=== PATIENT | female | born 1985 | race Two or more races ===

== ENCOUNTER 2020-03-03 22:30 | Emergency (ER) | payer OTHER ==
[~2020-03-03] VITALS: Ht 165.1 cm; Wt 61.2 kg
[2020-03-04] MEDS ORDERED: INTESTINEX680 M1 PO (05:29)
[2020-03-04] MEDS ORDERED: BUTALBIT-ACETA1 EACH PO (05:29)
[2020-03-04] MEDS ORDERED: ONDANSETRON ODT4 MG PO (05:29)
[2020-03-04] MEDS ORDERED: PEPCID AC20 MG PO (05:29)
== END 2020-03-04 06:10 | disposition home or self-care (01) ==
LOC: ER 22:30
DX: T61.774A Other fish poisoning, undetermined, initial encounter (principal); R11.2 Nausea with vomiting, unspecified; E86.0 Dehydration